=== PATIENT | male | born 1960 | race African-American/Black ===

== ENCOUNTER 2019-05-24 07:11 | Emergency (ER) | payer OTHER ==
[~2019-05-24] VITALS: Ht 177.8 cm; Wt 82.0 kg
[2019-05-24] MEDS ORDERED: FAMOTIDINE 20MG/2ML VIAL IV STA (07:31)
[2019-05-24] MEDS ORDERED: ONDANSETRON HCL 4MG/2ML INJ IV STA (07:31)
[2019-05-24] MEDS ORDERED: SODIUM CHLORIDE 0.9% 1,000 ML IV ONE (07:31)
[2019-05-24] MEDS ORDERED: MORPHINE SULFATE 4 MG/ML CPJ (NOT FOR IM USE) IV STA (07:31)
[2019-05-24 08:10] LABS: HEMATOCRIT. 47.7 % (42.0-52.0); HEMOGLOBIN. 16.6 g/dL (14.0-18.0); MEAN CORPUSCULAR HEMOGLOBIN 30.8 pg (28.0-32.0); MEAN CORPUSCULAR VOLUME 88.7 fL (80.0-94.0); MEAN PLATELET VOLUME 7.5 fl (7.4-10.4); PLATELET 287 x1000/uL (130-400); RED BLOOD CELL COUNT 5.38 mill/uL (4.7-6.1); RED CELL DISTRIBUTION WIDTH 12.9 % (11.6-14.6)
[2019-05-24 08:14] LABS: CHLORIDE 96 mEq/L (98-107)
[2019-05-24 08:15] LABS: PROTHROMBIN TIME 10.7 sec (9.6-11.0)
[2019-05-24 08:42] LABS: PLATELET ESTIMATE NORMAL
[2019-05-24 08:59] LABS: CLARITY URINE CLEAR (CLEAR); COLOR URINE YELLOW (YELLOW); KETONES URINE 1+ (NEGATIVE); LEUKOCYTE ESTERASE URINE 1+ (NEGATIVE); NITRITE URINE NEGATIVE (NEGATIVE); OCCULT BLOOD URINE 1+ (NEGATIVE); PH URINE 7.5 (4.5-8.0); PROTEIN URINE 2+ (NEGATIVE); SPECIFIC GRAVITY URINE 1.019 (1.005-1.030); UROBILINOGEN URINE 0.2 E.U./dL (0.2-1.0)
[2019-05-24] MEDS ORDERED: POTASSIUM CHLORIDE 20MEQ TABLET SR PO ONE (09:00)
[2019-05-24] MEDS ORDERED: CEFTRIAXONE 1 G PREMIX 50 ML IV ONE (10:15)
[2019-05-24 10:51] VITALS: BP 160/70
== END 2019-05-24 10:52 | disposition home or self-care (01) ==
LOC: ER 07:41
DX: N39.0 Urinary tract infection, site not specified (principal); E87.8 Other disorders of electrolyte and fluid balance, not elsewhere classified; F12.10 Cannabis abuse, uncomplicated; F17.200 Nicotine dependence, unspecified, uncomplicated
CPT/HCPCS: 36415; 74176; 80053; 81003; 83690; 85025; 85610; 87086; 96361; 96374; 96375; 99284; J0696; J2270; J2405; J3490; J7030